=== PATIENT | female | born 1945 | race Caucasian/White ===

== ENCOUNTER → 2016-12-17 | Outpatient (CLI) | payer MEDICARE, OTHER ==
[~2016-12-17] MED LIST: ACTOS15 MG PO; ATORVASTATIN CA10 MG PO; BAYER ASPIRIN325 M1 PO; CALCIUM + D3 E1 EACH PO; CARVEDILOL6.25 MG PO; COREG12.5 MG; COREG12.5 MG PO; COREG6.25 MG PO; FLUOXETINE HCL20 M1 PO; FORTEO2.4 ML SQ; FOSAMAX70 MG PO; GABAPENTIN300 M2 PO; K-DUR20 ME1 PO; KCL PO; LASIX PO; LISINOPRIL5 MG; LORTAB 5/500 TA1 TA2 PO; MEVACOR40 MG PO; MOBIC PO; MULTI-VITAMIN W1 TA1 PO; MULTIVITAMINS1 EAC3; NEURONTIN300 MG PO; NEXIUM20 MG PO; NORCO 5/325 TAB1 TAB PO; OMEPRAZOLE40 MG PO; OXYBUTYNIN CHLO10 MG PO; PYRIDIUM PO; REGLAN5 MG PO; REMERON15 MG PO; SARAFEM20 MG PO; SENNA-S TABLE1 UDTAB PO; TRAMADOL HCL50 M1 PO; TYLOX1 CAP 5/50 PO; ZESTRIL10 MG PO
--- NOTE | ~2016-12-17 | MY11 ---
[facility] A Service of [facility] RADIOLOGY TEXT RESULTS PATIENT: GENOVEVA MG [facility] 44 UNIT #: [id number] AGE: [address]: LEYLA MARIE MD (INT MED) SEX: F ORDER DR: [id number] [facility] [address]. [place], [place] [address] [id number] O MR#: [id number] Acc #: [id number] NAME: GENOVEVA MG : 1945 SEX: F STUDY DATE/TIME: 12/17/2016 14:43 UN[facility] ROOM: STUDY DESCRIPTION: MY Mammogram Screening Dig [place] Attending Physician: Leyla Marie M.D. Referring Physician: Leyla Marie M.D. Ordering Physician: Leyla Marie M.D. Primary Care Physician: Leyla Marie M.D. MEDICAL IMAGING REPORT This report is preliminary unless electronic signature is present EXAM Bilateral digital screening mammogram with CAD DATE 12/17/2016 HISTORY No personal or family history of breast cancer or current complaints. COMPARISON Bilateral screening mammogram 05/22/2015, 02/16/2013, 09/11/2007 FINDINGS CC and MLO views were obtained of each breast utilizing digital technique and reviewed an FDA-approved CAD device. Heterogeneously dense fibroglandular tissue is demonstrated bilaterally, left greater than right. Extensive fibronodular densities are seen throughout both breasts, left greater than right. The fibronodular pattern appears grossly stable. No definite new nodules are identified. Benign calcifications are present within each breast. No suspicious cluster of microcalcifications are seen. No architectural distortion. IMPRESSION Routine bilateral screening mammogram is recommended in year. Patient's over the age of 40 are entered into a reminder system with target due date for the next mammogram. A result letter will be sent to the patient. BIRADS: 2 Benign findings. [facility] A Service [facility] RADIOLOGY TEXT RESULTS PATIENT: GENOVEVA MG LOCATION: [facility] 44 UNIT #: [id number] AGE: [address]: LEYLA MARIE MD (INT MED) SEX: F ORDER DR: Dictated by... Stephanie Saravia M.D. THIS IS AN ELECTRONICALLY VERIFIED REPORT Stephanie Saravia M.D. at 12/18/2016 9:41 AM [facility]/to TD: 12/17/2016 16:05 JOB #: [id number] MEDICAL IMAGING REPORT Page 1 of 1 COPY
== END | disposition home or self-care (01) ==
LOC: CWCC 12-06 13:45
DX: Z12.31 Encounter for screening mammogram for malignant neoplasm of breast (principal)
CPT/HCPCS: G0202

== ENCOUNTER 2017-04-10 11:26 | Inpatient (IN) | payer MEDICARE, OTHER ==
[~2017-04-10] VITALS: Ht 154.9 cm; Wt 93.5 kg
--- NOTE | ~2017-04-10 | HP ---
Unit #: [id number] #: [id number] Patient: GENOVEVA MG [id number] [address] [address] [id number] E MR#: [id number] NAME: GENOVEVA MG ROOM: Age: 71 Sex: F Admission Date: 04/10/2017 : 1945 Attending Physician: Sagar Manzanares M.D. Primary Care Physician: Joseph Marie M.D. HISTORY AND PHYSICAL CHIEF COMPLAINT Fall. HISTORY OF PRESENT ILLNESS The patient is a 71-year-old female with a history of recurrent falls, coronary artery disease, and advanced degenerative joint disease, brought to the emergency room complaining of fall. The patient stated that patient had a fall on March 24 and was seen in the emergency room yesterday for similar reasons. The patient went home and had another fall, and then patient was on the floor from 7 p.m. to 4 a.m. this morning. The patient was brought to the emergency room for the above reasons. The patient had x-rays of the hip and spine and all have been negative. However, the patient is positive for UTI with UA showing 1+ leukocyte esterase, positive nitrites, and 4+ urine bacteria. The patient is being admitted for the above reasons. PAST MEDICAL HISTORY 1. CVA. 2. Osteoarthritis. 3. 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 4. Hyperlipidemia. 5. Hypertension. PAST SURGICAL HISTORY 1. Bilateral cataract surgery. 2. Left wrist surgery. HOME MEDICATIONS 1. Coreg. 2. Actos. 3. Mevacor. 4. Mobic. 5. Lasix. 6. Baby aspirin. 7. Fosamax. 8. K-Dur. 9. Reglan. 10. Remeron. 11. Omeprazole. 12. Multivitamins. ALLERGIES No known drug allergies. Unit #: [id number] #: [id number] Patient: GENOVEVA MG FAMILY HISTORY Hypertension, as well as cancer. SOCIAL HISTORY Patient lives by herself. Uses a walker and a cane to ambulate. Denies any alcohol use and denies any tobacco use. REVIEW OF SYSTEMS Positive for recurrent falls. Denies any chest pain. Denies any shortness of breath. All other systems have been reviewed and none unless otherwise mentioned in the HPI. PHYSICAL EXAMINATION GENERAL: Patient is lying in bed not in acute distress. VITAL SIGNS: Temperature 99.1, pulse 80, respiratory rate 16, blood pressure 136/85, saturating 96% at room air. HEENT: Head atraumatic with an old healed laceration on the right forehead. Pupils equal, round, and reactive to light and accommodation. Extraocular movements are intact. NECK: Supple. LUNGS: Decreased air entry at the bases. HEART: Regular rate and rhythm. ABDOMEN: Soft. Positive bowel sounds. EXTREMITIES: No cyanosis. No clubbing. Trace pedal edema. NEUROLOGIC: Alert, awake, and oriented. No gross focal motor deficit. DIAGNOSTIC STUDIES LABORATORY: Patient had a urinalysis that showed 1+ leukocyte esterase, positive nitrites, 10-25 urine WBCs, 4+ urine bacteria. Sodium 139, potassium 3.9, chloride 106, bicarb 27, glucose 154, BUN 22, creatinine 0.9, AST 34, ALT 34, alkaline phosphatase 62. CK is 399. INR is 1.1. WBC 8.3, hemoglobin 12.4, hematocrit 36.6, platelets 123,000. Troponin less than 0.05. IMAGING: Hip x-ray shows no evidence of acute fracture or dislocation of the right hip. Patient had a CT of the head that showed no definite acute intracranial abnormality identified. Findings suggest chronic microvascular disease and old left basal ganglia lacunar infarct. Not mentioned above, there is marked calcification within the basilar and vertebral arteries bilaterally that is unchanged from the [address] CT. Probable small right frontal scalp contusion. Chest x-ray shows cardiomegaly with low lung volumes and bronchovascular crowding. CT of the cervical spine shows there is no evidence of fracture or acute injury. There is a prominent posterior bony projection extending from the top of C6 down to the bottom of C7 which is clearly causing spinal canal stenosis. CARDIOLOGY: EKG shows normal sinus rhythm with sinus arrhythmia and minimal voltage criteria for LVH. ASSESSMENT 1. Recurrent falls. 2. Weakness. 3. Urinary tract infection. PLAN Admit the patient to observation with telemetry. Continue with IV antibiotics with Rocephin. Patient will have OT/PT evaluation and continue with home medications. Repeat the labs again in the morning, and Unit #: [id number] #: [id number] Patient: GENOVEVA MG further recommendations will follow. Patient will have fall precautions during hospitalization. Dictated by Liu Steinberg TD: 04/10/2017 17:34 JOB #: [id number] HISTORY AND PHYSICAL Page 1 of 1 X SANDEEP VILLALPANDO MD X HISTORY AND PHYSICAL
--- NOTE | ~2017-04-10 | DS ---
Unit #: [id number] #: [id number] Patient: GENOVEVA MG [id number] [address] [place], [place] [address] [id number] I MR#: [id number] NAME: GENOVEVA MG. ROOM: 319 Age: 71 Sex: F Admission Date: 04/10/2017 : 1945 Discharge Date: 04/15/2017 Attending Physician: Camille Kidd M.D. Primary Care Physician: Joseph Marie M.D. DISCHARGE SUMMARY DIAGNOSES ON ADMISSION 1. Acute UTI. 2. Falls. DIAGNOSES ON DISCHARGE 1. Recurrent falls. 2. Acute pyelonephritis. 3. Degenerative disease. 4. Hyperlipidemia. 5. Hypertension. 6. History of type 2 diabetes mellitus, but patient's current hemoglobin A1C is 5.4. LABS AND PROCEDURES DONE LABS: Patient's creatinine is 0.9, sodium 139, potassium is 4.6. Hemoglobin A1C is 5.4. WBC is 5.3, hemoglobin is 12.7, platelet count was 122. Urinalysis revealed 10 to 25 WBCs. Patient's magnesium level was 1.9. Urine culture revealed E-coli. IMAGING: CT scan of head did not reveal any acute appearing abnormality in the brain. HOSPITAL COURSE Pgmtkme-kle-uztq-old patient was admitted to the hospital with a fall. Details are as per admission H and P. Patient had multiple x-rays done, which did not reveal any fracture. Patient was seen by physical therapy, and subacute rehab was recommended. Therefore, patient will be transferred there. Acute pyelonephritis secondary to E-coli. Patient was IV Rocephin and responded well. PHYSICAL EXAMINATION GENERAL: Today, patient is comfortable, is not in any acute distress. Wants to go to rehab. VITAL SIGNS: Vital signs reveal temperature of 97.5. Pulse is 84 per minute. Respiratory rate is 16 per minute. Blood pressure is 103/71. HEENT: HEENT examination revealed no conjunctival congestion. Sclera is nonicteric. NECK: Neck is supple. Trachea central. RESPIRATORY: Respiratory examination revealed breath sounds equal bilaterally. There are no wheezes or crackles. HEART: Heart is regular rate and rhythm. S1, S2. ABDOMEN: Abdomen is soft, nontender. Bowel sounds are present in all 4 Unit #: [id number] #: [id number] Patient: GENOVEVA MG. NEUROLOGIC: Neurologically patient is alert to person, place and time. Power is 5/5 bilaterally. Sensations are grossly intact. SKIN: Skin is warm and dry. RECOMMENDATIONS ON DISCHARGE 1. Condition is stable. 2. Activity is as tolerated. DISCHARGE MEDICATIONS Medications are: 1. Neurontin 300 mg p.o. b.i.d. 2. Tylenol 650 mg p.o. q.6 hours p.r.n. 3. Prozac 20 mg p.o. daily. 4. Coreg 6.25 mg p.o. b.i.d. 5. Ditropan XL 5 mg p.o. daily. 6. Lipitor 10 mg p.o. q.h.s. 7. Lisinopril 5 mg p.o. daily. 8. Fosamax 70 mg p.o. on every Friday. 9. Multivitamin 1 tablet p.o. daily. 10. Tramadol 50 mg p.o. q.6 hours p.r.n. for pain. 11. Calcium with vitamin D 500 mg p.o. daily. 12. Potassium chloride 20 mEq p.o. daily. 13. Omnicef 300 mg p.o. b.i.d. for 4 days. DISPOSITION Patient will be transferred to rehab. PLAN Patient is advised to call primary care physician or go to ER if her condition changes. The plan was discussed in detail with the patient's daughter. Please feel free to call us if there are any questions regarding this hospitalization. Dictated by... Liu Alfonso/shanae TD: 04/15/2017 13:46 JOB #: [id number] DISCHARGE SUMMARY Page 1 of 1 X Camille Kidd MD X DISCHARGE SUMMARY
--- NOTE | ~2017-04-10 | CT71 ---
[facility] A Service of [facility] & [facility] RADIOLOGY TEXT RESULTS PATIENT: GENOVEVA MG LOCATION: [facility] 319-01 : 44 UNIT #: [id number] AGE: [address]: SUZY SORTOJ V SEX: F ORDER DR: [id number] [facility] [address] [place], [place] [address] [id number] I MR#: [id number] Acc #: [id number] NAME: GENOVEVA MG. : 1945 SEX: F STUDY DATE/TIME: 04/10/2017 13:53 UNIT: A U ROOM: 319 STUDY DESCRIPTION: CT Head Wo Contrast Attending Physician: Jess Adams M.D. Ordering Physician: Sagar Manzanares M.D. Primary Care Physician: Joseph Marie M.D. MEDICAL IMAGING REPORT This report is preliminary unless electronic signature is present EXAM CT head, 04/10/2017. HISTORY Fell today, neck and head pain. History of fall 2 weeks ago. Old bruise across forehead. Back and neck pain status post fall today. TECHNIQUE CT head performed skull base through vertex without intravenous contrast. This CT exam was performed with one or more of the following radiation dose reduction techniques: automatic exposure control, adjustment of mA and/or kV according to patient size, and iterative reconstruction. COMPARISON 04/09/2017 FINDINGS Brainstem unremarkable. Cerebellum and cerebral hemispheres show overall preservation of thomas matter-white matter differentiation. Stable encephalomalacic change posterior-inferior left cerebellar hemisphere consistent with remote vascular insult. Stable encephalomalacic change right temporooccipital region, also most consistent with remote vascular insult. Extensive subcortical periventricular and deep white matter tract, probable sequelae of chronic microvascular ischemia. No change. Chronic lacunar infarct in the anterior-superior left putamen extending into the anterior otero radiata. Midline structures are nondisplaced. No acute-appearing basal ganglia abnormality. Ventricles, cisterns, and sulci show mild generalized enlargement consistent with mild generalized atrophy. Prominent cavernous carotid and distal vertebral arterial calcifications. Intraorbital soft tissues are unremarkable. The visualized paranasal sinuses and mastoid air cells are clear. There is no hemorrhage. Previously described right frontal soft tissue swelling, not STS. [facility] A Service of [facility] RADIOLOGY TEXT RESULTS PATIENT: GENOVEVA MG LOCATION: [facility] 319-01 : 43 UNIT #: [id number] AGE: [address]: MARBIN SORTO V SEX: F ORDER DR: readily apparent on today's examination. IMPRESSION 1. No acute-appearing abnormality in the brain. No change in appearance from yesterday's examination. 2. Chronic changes include: Extensive periventricular and deep white matter tract probable sequelae of chronic microvascular ischemia, chronic lacunar infarct left putamen and anterior otero radiata, chronic encephalomalacic change right temporooccipital region and left posterior-inferior cerebellar hemisphere, both likely reflecting areas of remote vascular insult, extensive vascular calcification, mild generalized atrophy. 3. Extensive vascular calcification. 4. No fracture. Dictated by... Nicholas Downing M.D. THIS IS AN ELECTRONICALLY VERIFIED REPORT Nicholas Downing M.D. at 04/12/2017 10:01 PM CELINE/maddie TD: 04/10/2017 21:07 JOB #: [id number] MEDICAL IMAGING REPORT Page 1 of 1 COPY
--- NOTE | ~2017-04-10 | EKG ---
PATIENT: GENOVEVA MG UNIT #: [id number] Ventricular Rate: 76 BPM Atrial Rate: 76 BPM P-R Interval: 168 ms QRS Duration: 92 ms Q-T Interval: 396 ms QTC Calculation(Bezet): 445 ms P [place]: 34 degrees Calculated R [place]: -8 degrees Calculated T [place]: 108 degrees Diagnosis Line: Normal sinus rhythm with sinus arrhythmia Diagnosis Line: Minimal voltage criteria for LVH, may be normal Diagnosis Line: variant Diagnosis Line: T wave abnormality, consider lateral ischemia Diagnosis Line: Abnormal ECG Diagnosis Line: When compared with ECG of 09-APR-2017 13:26, Diagnosis Line: (unconfirmed) Diagnosis Line: No significant change was found Diagnosis Line: Confirmed by SYDNEY GERBER MD ([id number]) on 04/16/2017 Diagnosis Line: 7:31:49 AM INTERPRETING MD: ZABRINA DE JESUS
--- NOTE | ~2017-04-10 | CR151 ---
[facility] A Service of [facility] RADIOLOGY TEXT RESULTS PATIENT: GENOVEVA MG LOCATION: [facility] 319-01 : 44 UNIT #: [id number] AGE: [address]: Camille Kidd MD SEX: F ORDER DR: [id number] [facility] [address] [place], [place] [address] [id number] MR#: [id number] Acc #: [id number] NAME: GENOVEVA MG. : 1945 SEX: F STUDY DATE/TIME: 04/10/2017 12:21 UNIT: NEAL ROOM: STUDY DESCRIPTION: CR Hip Min 2 Views Rt Attending Physician: Sagar Manzanares M.D. Ordering Physician: Sagar Manzanares M.D. Primary Care Physician: Joseph Marie M.D. MEDICAL IMAGING REPORT This report is preliminary unless electronic signature is present EXAM Right hip, 2 views. COMPARISON April 09, 2017. INDICATIONS 71-year-old female with right hip pain since falling today. FINDINGS There is enthesopathy at both greater trochanters, left greater than right. There are degenerative changes in the lower lumbar spine. Overall the exam is limited by osteopenia and underpenetration. There is degenerative change at both sacroiliac joints. The right hip appears anatomically aligned. There is no evidence of acute fracture. IMPRESSION No evidence of acute fracture or dislocation of the right hip. Dictated by... Augusto Daily M.D. THIS IS AN ELECTRONICALLY VERIFIED REPORT Augusto Daily M.D. at 04/15/2017 4:19 PM Rossy TD: 04/10/2017 15:02 JOB #: [id number] MEDICAL IMAGING REPORT Page 1 of 1 COPY
--- NOTE | ~2017-04-10 | BMI ---
[facility] Nutrition Therapy DATE: 04/12/17 Patient: GENOVEVA Balbuena HARITHA Physician: BRIEN Address: [facility] Room/Bed: [address] [place] [address], Zip: [place] [address] Admit Date: 04/10/17 Date of : 43 Height: 5 1 Weight: 202 92 HIGH BMI NOTE: DX: 71 Y.O. FEMALE ADMITTED FOR UTI/FALL ANTHROPOMETRICS: 5'1", WT: 210# (95 KG), BMI: 40 DIET: HEALTHY HEART RECOMMENDATIONS: 1. RECOMMEND TO ADD CONSISENT CARBOHYDRATE DIET TO PROMOTE GRADUAL WEIGHT LOSS TOWARDS HEALTHY BMI (19.0-25.0) OR +/-10%IBW RD WILL F/U PER PROTOCOL Respectfully, NORBERT RHODES MS, RD, LD [facility] Nutrition[facility] cc: client file
--- NOTE | ~2017-04-10 | CT52 ---
[facility] A Service of [facility] RADIOLOGY TEXT RESULTS PATIENT: GENOVEVA MG LOCATION: A 319- : 44 UNIT #: [id number] AGE: [address]: SUZY SORTOJ V SEX: F ORDER DR: [id number] [facility] [address] [place], [place] [address] [id number] I MR#: [id number] Acc #: [id number] NAME: GENOVEVA MG. : 1945 SEX: F STUDY DATE/TIME: 04/10/2017 13:53 UNIT: A U ROOM: 319 STUDY DESCRIPTION: CT Cervical Spine Wo Cont Attending Physician: Jess dAams M.D. Ordering Physician: Sagar Manzanares M.D. Primary Care Physician: Joseph Marie M.D. MEDICAL IMAGING REPORT This report is preliminary unless electronic signature is present EXAM CT cervical spine without contrast DATE 04/10/2017 HISTORY Fell today with head and neck pain. COMPARISON CT cervical spine without contrast 04/09/2017 PROCEDURE 2 mm noncontrast axial images through the cervical spine. Sagittal and coronal reformatted images were obtained. This CT exam was performed with one or more of the following radiation dose reduction techniques: automatic exposure control, adjustment of mA and/or kV according to patient size, and iterative reconstruction. FINDINGS Craniocervical junction is intact. Cervical vertebral bodies demonstrate normal height and alignment without evidence of acute cervical spine fracture or acute subluxation. Multilevel degenerative changes are present within the cervical spine. At C2-3, there is severe right, moderate left facet arthropathy with bilateral uncovertebral spurring and mild posterior osteophyte formation. There is moderate right, mild left neural foraminal narrowing and mild canal stenosis. At C3-4, broad-based posterior disc osteophyte formation is present with severe right greater than left facet arthropathy. There is moderate canal [facility] A Service [facility] RADIOLOGY TEXT RESULTS PATIENT: GENOVEVA MG LOCATION: [facility] 319-01 : 43 UNIT #: [id number] AGE: [address]: MARBIN SORTO V SEX: F ORDER DR: stenosis and severe bilateral neural foraminal stenosis. At C4-5, this level was degraded by patient motion. There is severe left facet arthropathy, moderate severe right facet arthropathy. Mild broad-based posterior osteophyte formation. There is severe left, moderate right neural foraminal stenosis and mild canal stenosis. At C5-6, there is severe left facet arthropathy and posterior osteophyte formation. Severe canal stenosis, severe left, mild to moderate right neural foraminal narrowing. At C6-7, there is marked, thick posterior osteophyte formation calcification at this level with moderate to mild facet arthropathy. There is severe canal stenosis, severe right, moderate left neural foraminal narrowing. C7-T1, Marked central - posterior calcification or osteophyte formation is present with severe canal stenosis and mild bilateral neural foraminal narrowing. IMPRESSION 1. No acute cervical spine findings. 2. Advanced degenerative changes in the cervical spine as described in report. The most significant finding is the presence of dense, thick calcification or osteophyte formation extending from lower C5 through upper T1 levels, with severe canal stenosis at C5-6, C6-7. 3. Multilevel neural foraminal stenosis thought to be greatest on the right at C2-3, bilaterally at C3-4, left greater right at C4-5, bilaterally C5-6 and C6-7. Dictated by... Stephanie Saravia M.D. THIS IS AN ELECTRONICALLY VERIFIED REPORT Stephanie Saravia M.D. at 04/11/2017 8:[address] [facility]/benjie TD: 04/10/2017 21:00 JOB #: [id number] MEDICAL IMAGING REPORT Page 1 of 1 COPY
[~2017-04-10 11:26] MED LIST changes: -ATORVASTATIN CA10 MG PO; -CALCIUM + D3 E1 EACH PO; -COREG6.25 MG PO; -GABAPENTIN300 M2 PO; -KCL PO; -LISINOPRIL5 MG; -MULTIVITAMINS1 EAC3; -OXYBUTYNIN CHLO10 MG PO; -SARAFEM20 MG PO; -TRAMADOL HCL50 M1 PO
[2017-04-10] MEDS ORDERED: ATORVASTATIN CA10 MG PO (11:48)
[2017-04-10] MEDS ORDERED: LISINOPRIL5 MG (11:49)
[2017-04-10] MEDS ORDERED: OXYBUTYNIN CHLO10 MG PO (11:50)
[2017-04-10] MEDS ORDERED: COREG6.25 MG PO (11:51)
[2017-04-10] MEDS ORDERED: GABAPENTIN300 M2 PO (11:51)
[2017-04-10] MEDS ORDERED: KCL PO (11:52)
[2017-04-10] MEDS ORDERED: SARAFEM20 MG PO (11:52)
[2017-04-10] MEDS ORDERED: MULTIVITAMINS1 EAC3 (11:52)
[2017-04-10] MEDS ORDERED: TRAMADOL HCL50 M1 PO (11:53)
[2017-04-10] MEDS ORDERED: CALCIUM + D3 E1 EACH PO (11:53)
[2017-04-10 12:40] LABS: POC - CKMB 4.4 ng/mL (0.0-7.9); POC - TROPONIN <0.05 ng/mL (<=0.05)
[2017-04-10 13:08] LABS: BASOPHIL% 0.2 % (0-2.5); EOSINOPHIL# 0.1 X10e3 (0-0.7); EOSINOPHIL% 0.6 % (0.0-7.0); HEMATOCRIT 36.6 % (35.0-45.0); HEMOGLOBIN 12.4 gm/dL (12.0-16.0); LYMPHOCYTE# 1.3 X10e3 (1.0-3.5); LYMPHOCYTE% 15.9 % (17.0-45.0); MEAN CELL VOLUME 95.3 FL (83-96); MEAN CORPUSCULAR HEMOGLOBIN 32.4 PG (28-34); MEAN PLATELET VOLUME 9.2 FL (6.5-11.5); MONOCYTE# 0.6 X10e3 (0-1.0); NEUTROPHIL# 6.3 X10e3 (1.5-7.1); NEUTROPHIL% 76.3 % (40-75); PLATELET COUNT 123 X10e3 (140-420); RED BLOOD COUNT 3.84 X10e (3.90-5.30); RED CELL DISTRIBUTION WIDTH 12.9 % (11.0-15.5); WHITE BLOOD COUNT 8.3 X10e3 (4.0-10.5)
[2017-04-10 13:10] LABS: DIFF IND NO
[2017-04-10 13:19] LABS: INR 1.1; PARTIAL THROMBOPLASTIN TIME 25.1 SECONDS (23.5-31.3); PROTHROMBIN TIME (PATIENT) 11.5 SECONDS (10.0-11.7)
[2017-04-10 13:45] LABS: ALBUMIN SERUM 3.6 g/dL (3.5-5.0); BILIRUBIN, DIRECT 0.3 mg/dL (0.0-0.2); BILIRUBIN,INDIRECT 1.4 mg/dL (0.0-0.9); BILIRUBIN,TOTAL 1.7 mg/dL (0.2-2.0); BUN/CREATININE RATIO 24.44; CALCIUM SERUM 8.6 mg/dL (8.4-10.2); CREATININE SERUM 0.9 mg/dL (0.6-1.4); GLOM FILT RATE Estimated 63.9 mL/min (>60); POTASSIUM 3.9 mmol/L (3.5-5.1); PROTEIN TOTAL SERUM 6.4 g/dL (6.0-8.3)
[2017-04-10 15:50] LABS: URINE SOURCE CLEAN CATCH
[2017-04-10 16:02] LABS: URINE APPEARANCE CLOUDY; URINE BILIRUBIN NEG (NEG); URINE BLOOD TRACE (NEG); URINE COLOR YELLOW; URINE GLUCOSE NEG (NEG); URINE KETONE NEG (NEG); URINE LEUKOCYTE ESTERASE 1+ (NEG); URINE NITRATE POS (NEG); URINE PROTEIN NEG (NEG); URINE SPECIFIC GRAVITY 1.021 (1.003-1.035)
[2017-04-10 16:05] LABS: CULTURE INDICATED? YES; URINE BACTERIA AUWI 4+ (NEGATIVE); URINE SQUAMOUS EPITHELIAL CELL FEW /[HPF]
[2017-04-11 04:58] LABS: HEMATOCRIT 34.8 % (35.0-45.0); HEMOGLOBIN 11.6 gm/dL (12.0-16.0); MEAN CELL VOLUME 96.8 FL (83-96); MEAN CORPUSCULAR HEMOGLOBIN 32.4 PG (28-34); MEAN CORPUSCULAR HGB CONC 33.5 g/dL (30-36); RED BLOOD COUNT 3.6 X10e (3.90-5.30); WHITE BLOOD COUNT 6.7 X10e3 (4.0-10.5)
[2017-04-11 07:42] LABS: BUN/CREATININE RATIO 22.22; CALCIUM SERUM 8.5 mg/dL (8.4-10.2); CREATININE SERUM 0.9 mg/dL (0.6-1.4); GLOM FILT RATE Estimated 63.9 mL/min (>60); POTASSIUM 3.7 mmol/L (3.5-5.1)
[2017-04-13 06:01] LABS: HEMATOCRIT 36.8 % (35.0-45.0); HEMOGLOBIN 12.7 gm/dL (12.0-16.0); MEAN CELL VOLUME 94.6 FL (83-96); MEAN CORPUSCULAR HEMOGLOBIN 32.7 PG (28-34); MEAN CORPUSCULAR HGB CONC 34.6 g/dL (30-36); MEAN PLATELET VOLUME 8.4 FL (6.5-11.5); RED BLOOD COUNT 3.89 X10e (3.90-5.30); RED CELL DISTRIBUTION WIDTH 12.7 % (11.0-15.5); WHITE BLOOD COUNT 5.3 X10e3 (4.0-10.5)
[2017-04-13 06:52] LABS: CALCIUM SERUM 8.8 mg/dL (8.4-10.2); CREATININE SERUM 0.9 mg/dL (0.6-1.4); GLOM FILT RATE Estimated 63.9 mL/min (>60); POTASSIUM 4.6 mmol/L (3.5-5.1)
== END 2017-04-15 17:27 | DRG 690 ==
LOC: CED 11:26 → C3A PCU 15:00 → CED 15:00 → C3A PCU 17:08 → CED 17:08 → C3A PCU 04-11 08:08
PROVIDERS: Emergency Medicine; Internal Medicine
DX: N10 Acute pyelonephritis (principal); E11.40 Type 2 diabetes mellitus with diabetic neuropathy, unspecified; S09.90XA Unspecified injury of head, initial encounter; I10 Essential (primary) hypertension; B96.20 Unspecified Escherichia coli [E. coli] as the cause of diseases classified elsewhere; Z91.81 History of falling; E78.5 Hyperlipidemia, unspecified; Z98.49 Cataract extraction status, unspecified eye; Z86.73 Personal history of transient ischemic attack (TIA), and cerebral infarction without residual deficits; M19.90 Unspecified osteoarthritis, unspecified site; Z79.82 Long term (current) use of aspirin; Z82.49 Family history of ischemic heart disease and other diseases of the circulatory system; R53.1 Weakness; S79.911A Unspecified injury of right hip, initial encounter; S00.83XA Contusion of other part of head, initial encounter; S19.9XXA Unspecified injury of neck, initial encounter; W01.0XXA Fall on same level from slipping, tripping and stumbling without subsequent striking against object, initial encounter; Y92.009 Unspecified place in unspecified non-institutional (private) residence as the place of occurrence of the external cause
CPT/HCPCS: 36415; 70450; 70486; 71020; 72125; 73110; 73130; 73502; 80048; 80076; 81003; 82550; 82553; 82947; 83036; 83735; 84443; 84484; 85025; 85027; 85610; 85730; 87086; 87088; 87186; 93005; 94760; 96361; 96374; 97110; 97116; 97161; 97165; 97530; 97535; 99285; G8978-GP; G8979-GP; G8987-GO; G8988-GO; J0696; J1650; J2270; J2405